=== PATIENT | female | born 1965 | race Caucasian/White ===

== ENCOUNTER → 2016-08-16 | Outpatient (CLI) | payer MEDICARE, MEDICAID ==
[~2016-08-16] MED LIST: ASPI1TAB PO; BUSP30TA PO; CALCTAB68 PO; CIPR500T89 PO; CLOB0.0548 TOP; DOXE50CA PO; DRIS50002 PO; FLAG500T PO; LORA10TA2 PO; NEXI40CA PO; NIFE15CA PO; VITMTA PO; [UNRECOGNIZED DRUG - CODE] TOP; [UNRECOGNIZED DRUG - CODE] TOP
--- NOTE | 2016-08-16 09:58 | REP ---
Clinical: Primary osteoarthritis. Technique: AP view of the pelvis with neutral and frog lateral views of the bilateral hips. Comparison: 03/08/2011. Findings: Moderate symmetric osteoarthritic degenerative changes to the bilateral hips is appreciated including increased sclerosis to the acetabular with marginal spurring and mild joint space narrowing. No periarticular calcifications are identified. No acute fracture or dislocation. Impression: Moderate symmetric osteoarthritic degenerative changes. Signed by Peter Saldivar MD 08/16/2016 09:50 A
== END ==
LOC: M WUC 09:21
PROVIDERS: ATTEND Physician Assistant Medical
DX: M16.0 Bilateral primary osteoarthritis of hip (principal)
CPT/HCPCS: 73521; G0463

== ENCOUNTER → 2016-08-26 | Outpatient (REF) | payer MEDICARE, MEDICAID ==
[2016-08-26 13:01] LABS: BASO % 0.6 % (0.0-1.0); EOS # 0.3 K/mm3 (0.0-0.50); EOS % 4.1 % (0.0-3.0); LARGE UNSTAINED CELL # 0.1 K/mm3 (0.0-0.4); LARGE UNSTAINED CELL % 1.7 % (0.0-4.0); LYMPH % 29.9 % (24.0-44.0); MEAN CORPUSCULAR HEMOGLOBIN 26.6 pg (27.0-33.0); MEAN CORPUSCULAR HGB CONC 32.3 g/dl (32.0-36.5); MEAN CORPUSCULAR VOLUME 82.2 fl (80.0-96.0); MONO # 0.4 K/mm3 (0.0-0.8); MONO % 5.8 % (0.0-5.0); NEUTROPHILS # 3.6 K/mm3 (1.8-7.7); NEUTROPHILS % 57.9 % (36.0-66.0); PLATELET COUNT, AUTOMATED 322 k/mm3 (150-450); RED CELL DISTRIBUTION WIDTH 14.6 % (11.5-14.5); WHITE BLOOD COUNT 6.2 K/mm3 (4.0-10.0)
[2016-08-26 13:24] LABS: ALBUMIN 3.8 GM/DL (3.2-5.2); ALBUMIN/GLOBULIN RATIO 0.97 (1.00-1.93); ALKALINE PHOSPHATASE 142 U/L (45-117); ALT/SGPT 18 U/L (12-78); ANION GAP 8 MEQ/L (8-16); AST/SGOT 20 U/L (15-37); BILIRUBIN,TOTAL 0.2 MG/DL (0.2-1.0); BLOOD UREA NITROGEN 14 MG/DL (7-18); CARBON DIOXIDE LEVEL 27 MEQ/L (21-32); CHLORIDE LEVEL 109 MEQ/L (98-107); CHOLESTEROL LEVEL 162 MG/DL (<200); CREATININE FOR GFR 0.89 MG/DL (0.55-1.02); FERRITIN 19 NG/ML (8-252); FREE T4 1.06 NG/DL (0.76-1.46); GLOMERULAR FILTRATION RATE > 60.0 (>51); GLUCOSE, FASTING 75 MG/DL (70-105); PERCENT SATURATION 7.1 % (13.2-37.4); POTASSIUM SERUM 4.6 MEQ/L (3.5-5.1); SODIUM LEVEL 144 MEQ/L (136-145); TOTAL IRON BINDING CAPACITY 394 UG/DL (250-450); TOTAL PROTEIN 7.7 GM/DL (6.4-8.2); TRIGLYCERIDES LEVEL 171 MG/DL (<150)
[2016-08-26 14:31] LABS: ERYTHROCYTE SEDIMENTATION RATE 23 mm/hr (0-30)
== END ==
LOC: M SFHCPLAZ 10:53
PROVIDERS: ATTEND Family Medicine
DX: D50.9 Iron deficiency anemia, unspecified (principal); E55.9 Vitamin D deficiency, unspecified; M47.816 Spondylosis without myelopathy or radiculopathy, lumbar region; E78.2 Mixed hyperlipidemia
CPT/HCPCS: 36415; 80053; 80061; 82306; 82728; 83550; 83970; 84439; 84443; 85025; 85652; 86140; G0463

== ENCOUNTER → 2016-08-28 | Outpatient (CLI) | payer MEDICARE, MEDICAID ==
--- NOTE | 2016-08-29 07:35 | REP ---
LUMBOSACRAL SPINE: Five views of the lumbosacral spine are performed. There is no compression fracture. There is moderate diffuse spurring. There is mild disc space narrowing at all levels. There is sclerosis at the facets of L4-5 and L5-S1. The posterior elements are intact. IMPRESSION: Degenerative changes without fracture or dislocation. Signed by Presley Pedroza MD 08/29/2016 01:54 P
--- NOTE | 2016-08-29 07:40 | REP ---
THORACIC SPINE: AP and lateral views of the thoracic spine are performed. There is no compression fracture. There is normal thoracic kyphosis. Diffuse spurring is seen of a moderate degree with multiple bridging osteophytes diffusely. There is mild disc space narrowing and subchondral sclerosis at virtually all levels. There is curvature toward the right. Posterior elements appear intact. IMPRESSION: Diffuse degenerative changes. Signed by Presley Pedroza MD 08/29/2016 01:54 P
== END ==
LOC: M WUC 10:01
PROVIDERS: ATTEND Family Medicine
DX: M41.20 Other idiopathic scoliosis, site unspecified (principal)

== ENCOUNTER → 2016-10-26 | Outpatient (CLI) | payer MEDICARE, MEDICAID ==
[2016-10-26 17:57] LABS: BASO % 0.5 % (0.0-1.0); EOS # 0.2 K/mm3 (0.0-0.50); EOS % 2.7 % (0.0-3.0); LARGE UNSTAINED CELL # 0.1 K/mm3 (0.0-0.4); LARGE UNSTAINED CELL % 1.2 % (0.0-4.0); LYMPH % 29.6 % (24.0-44.0); MEAN CORPUSCULAR HEMOGLOBIN 26.2 pg (27.0-33.0); MEAN CORPUSCULAR HGB CONC 30.7 g/dl (32.0-36.5); MEAN CORPUSCULAR VOLUME 85.3 fl (80.0-96.0); MONO # 0.2 K/mm3 (0.0-0.8); MONO % 3.1 % (0.0-5.0); NEUTROPHILS # 4.3 K/mm3 (1.8-7.7); NEUTROPHILS % 62.9 % (36.0-66.0); PLATELET COUNT, AUTOMATED 274 k/mm3 (150-450); RED CELL DISTRIBUTION WIDTH 15.4 % (11.5-14.5); WHITE BLOOD COUNT 6.9 K/mm3 (4.0-10.0)
[2016-10-26 18:06] LABS: PERCENT SATURATION 8.7 % (13.2-37.4)
== END ==
LOC: M WUC 14:21
PROVIDERS: ATTEND Physician Assistant Medical
DX: D50.9 Iron deficiency anemia, unspecified (principal)

== ENCOUNTER → 2016-12-13 | Outpatient (CLI) | payer MEDICARE, MEDICAID ==
--- NOTE | 2016-12-15 09:15 | DEXA ---
AP SPINE L1 - L4 1.312 0.9 1.6 LT FEMUR TOTAL 0.869 -1.1 -0.5 RT FEMUR TOTAL 0.880 -1.0 -0.4 TOTAL BODY TOTAL OTHER DUAL FEMUR FRAX* ASSESSMENT Risk factors: None that we are aware of. 10 year probability of fracture Major osteoporotic fracture 5.4 % Hip fracture 0.4 % COMMENTS: Normal bone densitometry of the spine. There is low bone density of the hips. The increased density of the spine does not represent a significant change. The decreased density of the left hip does represent a significant change. The decreased density of the right hip does represent a significant change. The density of the spine has decreased 16.6% since the initial exam on 2006. The spine density has increased 0.4% since the most recent exam on 01/04/2014. The density of the left hip has decreased 12.2% since the initial exam on 2006. The density of the left hip has decreased 3.1% since the most recent exam on 04/2014. The density of the right hip has decreased 13.8% since the initial exam on 08/24. The density of the right hip has decreased 3.7% since the most recent exam on . FOLLOW-UP: Recommendation for the next bone density exam: 2 years. JOSIE
== END ==
LOC: M WHC 11:30
PROVIDERS: ATTEND Family Medicine
DX: E55.9 Vitamin D deficiency, unspecified (principal); M89.9 Disorder of bone, unspecified

== ENCOUNTER → 2017-04-21 | Outpatient (CLI) | payer MEDICARE, MEDICAID ==
[~2017-04-21] MED LIST changes: +CIPR-249 PO; -CIPR500T89 PO
--- NOTE | 2017-04-21 11:05 | REP ---
BILATERAL SCREENING DIGITAL MAMMOGRAM: There are no palpable abnormalities or other breast complaints. The patient states that she/he has not had a clinical breast exam in over a year. COMPARISON: 12/25/2009. The patient was unable to fully cooperate with the mammogram examination process. Only a portion of the breast parenchyma is projected over the films. The visualized breast parenchyma demonstrates no dominant mass, microcalcific cluster, or architectural distortion that would indicate malignancy. The breast parenchyma is predominantly adipose. There are stable benign calcifications, as previously. IMPRESSION: BIRADS category 0, incomplete. The patient should return for additional views demonstrating more breast parenchyma, as on prior studies. This mammogram was interpreted with the aid of an FDA-approved computer-aided detection system. A. Negative x-ray reports should not delay biopsy if a dominant or clinically suspicious mass is present. B. Not all breast cancers are not identified by x-ray. C. Adenosis and dense breasts may obscure an underlying neoplasm. The patient letter M0.
== END ==
LOC: M WHC 09:26
PROVIDERS: ATTEND Family Medicine
DX: Z12.31 Encounter for screening mammogram for malignant neoplasm of breast (principal)

== ENCOUNTER 2017-05-25 09:00 | Outpatient (RCR) | payer MEDICARE, MEDICAID | END 2017-05-26 | LOC: M PT 09:00 | PROVIDERS: ATTEND Family Medicine | DX: M47.812 Spondylosis without myelopathy or radiculopathy, cervical region (principal) | CPT/HCPCS: 97110; 97161; G8978; G8979 ==

== ENCOUNTER 2017-05-30 08:55 | Outpatient (RCR) | payer MEDICARE, MEDICAID | END 2017-06-26 | LOC: M PT 08:55 | DX: Z51.89 Encounter for other specified aftercare (principal); M47.812 Spondylosis without myelopathy or radiculopathy, cervical region | CPT/HCPCS: 97110 ==

== ENCOUNTER 2017-07-07 13:05 | Inpatient (IN) | payer MEDICARE, MEDICAID ==
[2017-07-07] MEDS: OYSTER SHELL CALCIUM 500 MG TAB PO ×2 (09:00→22:48)
[2017-07-07 13:52] LABS: BASO % 0.2 % (0.0-1.0); EOS # 0.2 10^3/uL (0.0-0.50); EOS % 2.1 % (0.0-3.0); HEMOGLOBIN 13.8 g/dl (12.0-16.0); IMMATURE GRANULOCYTE % 0.2 % (0-0); LYMPH # 0.8 10^3/uL (1.5-4.5); LYMPH % 8.4 % (24.0-44.0); MEAN CORPUSCULAR HEMOGLOBIN 26.8 pg (27.0-33.0); MEAN CORPUSCULAR HGB CONC 32.1 g/dl (32.0-36.5); MEAN CORPUSCULAR VOLUME 83.7 fl (80.0-96.0); MONO # 0.4 10^3/uL (0.0-0.8); MONO % 3.9 % (0.0-5.0); NEUTROPHILS # 7.8 10^3/uL (1.8-7.7); NEUTROPHILS % 85.2 % (36.0-66.0); PLATELET COUNT, AUTOMATED 258 10^3/uL (150-450); RED BLOOD COUNT 5.14 10^6/uL (4.00-5.40); RED CELL DISTRIBUTION WIDTH 14.6 % (11.5-14.5); WHITE BLOOD COUNT 9.1 10^3/uL (4.0-10.0)
[2017-07-07] MEDS: ASPIRIN 81 MG CHEW TABLET PO (13:52)
[2017-07-07] MEDS: NORCO, ANEXSIA 5/325MG TABLET (HYDROcodone/ACETAMINOPHEN) PO (13:53)
[2017-07-07 14:05] LABS: INR 1.07
[2017-07-07 14:27] LABS: ALBUMIN 3.8 GM/DL (3.2-5.2); ALBUMIN/GLOBULIN RATIO 0.97 (1.00-1.93); ALKALINE PHOSPHATASE 125 U/L (45-117); ALT/SGPT 20 U/L (12-78); ANION GAP 9 MEQ/L (8-16); AST/SGOT 19 U/L (7-37); BILIRUBIN,DIRECT 0.1 MG/DL (0.0-0.2); BILIRUBIN,TOTAL 0.6 MG/DL (0.2-1.0); BLOOD UREA NITROGEN 23 MG/DL (7-18); C REACTIVE PROTEIN QUANTITATIV 1.08 MG/DL (0.00-0.30); CALCIUM LEVEL 8.3 MG/DL (8.5-10.1); CARBON DIOXIDE LEVEL 25 MEQ/L (21-32); CHLORIDE LEVEL 106 MEQ/L (98-107); CPK CREATINE PHOSPHOKINASE 73 U/L (26-192); CREATININE FOR GFR 0.85 MG/DL (0.55-1.02); GLOMERULAR FILTRATION RATE > 60.0 (>51); GLUCOSE, FASTING 102 MG/DL (70-105); POTASSIUM SERUM 4.3 MEQ/L (3.5-5.1); SODIUM LEVEL 140 MEQ/L (136-145); TOTAL PROTEIN 7.7 GM/DL (6.4-8.2); TROPONIN I < 0.02 NG/ML (< 0.10)
[2017-07-07 14:28] LABS: ERYTHROCYTE SEDIMENTATION RATE 7 mm/hr (0-30)
[2017-07-07 14:33] LABS: MB/CK RELATIVE INDEX 1.36 (< OR =4)
[2017-07-07] MEDS: ONDANSETRON 4MG/2ML VIAL (J2405) IV ×2 (16:15→23:13)
[2017-07-07] MEDS: ACETAMINOPHEN TAB 650MG DOSE (2X325MG) PO ×2 (16:45→21:29)
[2017-07-07] MEDS: NS 1,000 ML IV ×2 (16:45→18:30)
[2017-07-07 18:49] LABS: CPK CREATINE PHOSPHOKINASE 58 U/L (26-192); TROPONIN I < 0.02 NG/ML (< 0.10)
[2017-07-07 18:50] LABS: MB/CK RELATIVE INDEX 1.72 (< OR =4)
[2017-07-07] MEDS ORDERED: CLOBETASOL PROPIONATE EMOLLIENT 0.05% CR 60 GM TOP (22:00)
[2017-07-07] MEDS: busPIRone 5 MG TAB PO (22:48)
[2017-07-07] MEDS: DOXEPIN 25 MG CAP PO (22:48)
[2017-07-07] MEDS: HEPARIN SOD (PORCINE) 5000 UNITS/ML VIAL SC (22:48)
[2017-07-08] MEDS: NS 1,000 ML IV ×2 (04:30→14:30)
[2017-07-08] MEDS: ACETAMINOPHEN TAB 650MG DOSE (2X325MG) PO ×2 (05:03→10:13)
[2017-07-08] MEDS: HEPARIN SOD (PORCINE) 5000 UNITS/ML VIAL SC ×2 (08:13→21:00)
[2017-07-08] MEDS: ASPIRIN 81 MG ENTERIC TAB PO (08:14)
[2017-07-08] MEDS: IRON POLYSAC (NIFEREX) 150 MG CAP PO (08:14)
[2017-07-08] MEDS: MULTIVITAMINS/MINERALS THERAP 1 TAB PO (08:14)
[2017-07-08] MEDS: NEBIVOLOL 5 MG TAB (BYSTOLIC) PO (08:14)
[2017-07-08] MEDS: PANTOPRAZOLE 40MG TAB (PROTONIX) PO (08:15)
[2017-07-08] MEDS: BABY POWDER 120GM TOP (08:15)
[2017-07-08] MEDS: OYSTER SHELL CALCIUM 500 MG TAB PO ×2 (08:15→21:01)
[2017-07-08] MEDS: SARNA LOTION 225 ML BTL TOP ×2 (08:16→21:02)
[2017-07-08 08:58] LABS: BASO % 0.1 % (0.0-1.0); HEMATOCRIT 38.5 % (36.0-47.0); HEMOGLOBIN 12.5 g/dl (12.0-16.0); IMMATURE GRANULOCYTE % 0.3 % (0-0); LYMPH # 0.8 10^3/uL (1.5-4.5); LYMPH % 11.1 % (24.0-44.0); MEAN CORPUSCULAR HEMOGLOBIN 27.3 pg (27.0-33.0); MEAN CORPUSCULAR HGB CONC 32.5 g/dl (32.0-36.5); MEAN CORPUSCULAR VOLUME 84.1 fl (80.0-96.0); MONO # 0.2 10^3/uL (0.0-0.8); NEUTROPHILS # 6.1 10^3/uL (1.8-7.7); NEUTROPHILS % 85.5 % (36.0-66.0); PLATELET COUNT, AUTOMATED 210 10^3/uL (150-450); RED BLOOD COUNT 4.58 10^6/uL (4.00-5.40); WHITE BLOOD COUNT 7.1 10^3/uL (4.0-10.0)
[2017-07-08 09:17] LABS: ANION GAP 7 MEQ/L (8-16); BLOOD UREA NITROGEN 16 MG/DL (7-18); CALCIUM LEVEL 7.3 MG/DL (8.5-10.1); CARBON DIOXIDE LEVEL 24 MEQ/L (21-32); CHLORIDE LEVEL 111 MEQ/L (98-107); CREATININE FOR GFR 0.79 MG/DL (0.55-1.02); GLOMERULAR FILTRATION RATE > 60.0 (>51); GLUCOSE, FASTING 125 MG/DL (70-105); POTASSIUM SERUM 3.2 MEQ/L (3.5-5.1); SODIUM LEVEL 142 MEQ/L (136-145)
[2017-07-08] MEDS: busPIRone 5 MG TAB PO ×2 (10:13→21:01)
[2017-07-08 18:54] LABS: SALICYLATE LEVEL < 1.7 MG/DL (5.0-30.0)
[2017-07-08] MEDS: POTASSIUM CHLORIDE 10 MEQ SR TABLET PO (21:01)
[2017-07-08] MEDS: DOXEPIN 25 MG CAP PO (21:01)
[2017-07-09] MEDS: NS 1,000 ML IV ×2 (00:30→08:35)
[2017-07-09] MEDS: VANCOMYCIN ORAL SOL 250MG/5ML ORAL SYRINGE PO ×4 (02:05→18:30)
[2017-07-09 06:27] LABS: HEMATOCRIT 36.7 % (36.0-47.0); HEMOGLOBIN 11.6 g/dl (12.0-16.0); MEAN CORPUSCULAR HEMOGLOBIN 26.4 pg (27.0-33.0); MEAN CORPUSCULAR HGB CONC 31.6 g/dl (32.0-36.5); MEAN CORPUSCULAR VOLUME 83.6 fl (80.0-96.0); PLATELET COUNT, AUTOMATED 203 10^3/uL (150-450); RED BLOOD COUNT 4.39 10^6/uL (4.00-5.40); RED CELL DISTRIBUTION WIDTH 14.8 % (11.5-14.5); WHITE BLOOD COUNT 6.4 10^3/uL (4.0-10.0)
[2017-07-09 06:54] LABS: ANION GAP 7 MEQ/L (8-16); BLOOD UREA NITROGEN 12 MG/DL (7-18); CALCIUM LEVEL 7.4 MG/DL (8.5-10.1); CARBON DIOXIDE LEVEL 20 MEQ/L (21-32); CHLORIDE LEVEL 116 MEQ/L (98-107); CREATININE FOR GFR 0.65 MG/DL (0.55-1.02); GLOMERULAR FILTRATION RATE > 60.0 (>51); GLUCOSE, FASTING 80 MG/DL (70-105); POTASSIUM SERUM 3.6 MEQ/L (3.5-5.1); SODIUM LEVEL 143 MEQ/L (136-145)
[2017-07-09] MEDS: IRON POLYSAC (NIFEREX) 150 MG CAP PO (08:35)
[2017-07-09] MEDS: POTASSIUM CHLORIDE 10 MEQ SR TABLET PO ×2 (08:36→21:06)
[2017-07-09] MEDS: busPIRone 5 MG TAB PO ×2 (08:37→21:06)
[2017-07-09] MEDS: ACETAMINOPHEN TAB 650MG DOSE (2X325MG) PO (08:37)
[2017-07-09] MEDS: NEBIVOLOL 5 MG TAB (BYSTOLIC) PO (08:38)
[2017-07-09] MEDS: HEPARIN SOD (PORCINE) 5000 UNITS/ML VIAL SC ×2 (08:38→21:07)
[2017-07-09] MEDS: PANTOPRAZOLE 40MG TAB (PROTONIX) PO (08:38)
[2017-07-09] MEDS: ASPIRIN 81 MG ENTERIC TAB PO (08:39)
[2017-07-09] MEDS: SARNA LOTION 225 ML BTL TOP ×2 (08:39→21:08)
[2017-07-09] MEDS: BABY POWDER 120GM TOP (08:39)
[2017-07-09] MEDS: MULTIVITAMINS/MINERALS THERAP 1 TAB PO (08:39)
[2017-07-09] MEDS: OYSTER SHELL CALCIUM 500 MG TAB PO ×2 (08:39→21:05)
[2017-07-09] MEDS: KCL 20MEQ IN 0.45NS 1000ML 1,000 ML IV (14:30)
[2017-07-09] MEDS: DOXEPIN 25 MG CAP PO (21:05)
[2017-07-10] MEDS: VANCOMYCIN ORAL SOL 250MG/5ML ORAL SYRINGE PO ×4 (00:08→17:58)
[2017-07-10] MEDS: KCL 20MEQ IN 0.45NS 1000ML 1,000 ML IV ×2 (03:54→14:09)
[2017-07-10 07:40] LABS: HEMATOCRIT 37.8 % (36.0-47.0); MEAN CORPUSCULAR HEMOGLOBIN 26.4 pg (27.0-33.0); MEAN CORPUSCULAR HGB CONC 31.7 g/dl (32.0-36.5); MEAN CORPUSCULAR VOLUME 83.3 fl (80.0-96.0); PLATELET COUNT, AUTOMATED 241 10^3/uL (150-450); RED BLOOD COUNT 4.54 10^6/uL (4.00-5.40); WHITE BLOOD COUNT 5.4 10^3/uL (4.0-10.0)
[2017-07-10 08:02] LABS: ANION GAP 8 MEQ/L (8-16); BLOOD UREA NITROGEN 7 MG/DL (7-18); CALCIUM LEVEL 7.9 MG/DL (8.5-10.1); CARBON DIOXIDE LEVEL 23 MEQ/L (21-32); CHLORIDE LEVEL 115 MEQ/L (98-107); CREATININE FOR GFR 0.69 MG/DL (0.55-1.02); GLOMERULAR FILTRATION RATE > 60.0 (>51); GLUCOSE, FASTING 76 MG/DL (70-105); POTASSIUM SERUM 3.8 MEQ/L (3.5-5.1); SODIUM LEVEL 146 MEQ/L (136-145)
[2017-07-10] MEDS: SARNA LOTION 225 ML BTL TOP ×2 (09:00→20:37)
[2017-07-10] MEDS: MULTIVITAMINS/MINERALS THERAP 1 TAB PO (09:39)
[2017-07-10] MEDS: HEPARIN SOD (PORCINE) 5000 UNITS/ML VIAL SC ×2 (09:40→20:34)
[2017-07-10] MEDS: IRON POLYSAC (NIFEREX) 150 MG CAP PO (09:40)
[2017-07-10] MEDS: POTASSIUM CHLORIDE 10 MEQ SR TABLET PO ×2 (09:40→20:34)
[2017-07-10] MEDS: busPIRone 5 MG TAB PO ×2 (09:40→20:36)
[2017-07-10] MEDS: OYSTER SHELL CALCIUM 500 MG TAB PO ×2 (09:41→20:35)
[2017-07-10] MEDS: NEBIVOLOL 5 MG TAB (BYSTOLIC) PO (09:41)
[2017-07-10] MEDS: ASPIRIN 81 MG ENTERIC TAB PO (09:41)
[2017-07-10] MEDS: BABY POWDER 120GM TOP (09:41)
[2017-07-10] MEDS: DOXEPIN 25 MG CAP PO (20:35)
[2017-07-11] MEDS: VANCOMYCIN ORAL SOL 250MG/5ML ORAL SYRINGE PO ×2 (00:53→05:59)
[2017-07-11 07:08] LABS: HEMOGLOBIN 12.6 g/dl (12.0-16.0); MEAN CORPUSCULAR HEMOGLOBIN 26.6 pg (27.0-33.0); MEAN CORPUSCULAR HGB CONC 32.3 g/dl (32.0-36.5); MEAN CORPUSCULAR VOLUME 82.5 fl (80.0-96.0); PLATELET COUNT, AUTOMATED 275 10^3/uL (150-450); RED BLOOD COUNT 4.73 10^6/uL (4.00-5.40); RED CELL DISTRIBUTION WIDTH 14.8 % (11.5-14.5); WHITE BLOOD COUNT 5.8 10^3/uL (4.0-10.0)
[2017-07-11 07:24] LABS: ANION GAP 5 MEQ/L (8-16); BLOOD UREA NITROGEN 14 MG/DL (7-18); CALCIUM LEVEL 8.4 MG/DL (8.5-10.1); CARBON DIOXIDE LEVEL 27 MEQ/L (21-32); CHLORIDE LEVEL 111 MEQ/L (98-107); CREATININE FOR GFR 0.74 MG/DL (0.55-1.02); GLOMERULAR FILTRATION RATE > 60.0 (>51); GLUCOSE, FASTING 91 MG/DL (70-105); SODIUM LEVEL 143 MEQ/L (136-145)
[2017-07-11] MEDS: IRON POLYSAC (NIFEREX) 150 MG CAP PO (09:54)
[2017-07-11] MEDS: POTASSIUM CHLORIDE 10 MEQ SR TABLET PO (09:54)
[2017-07-11] MEDS: busPIRone 5 MG TAB PO (09:54)
[2017-07-11] MEDS: NEBIVOLOL 5 MG TAB (BYSTOLIC) PO (09:55)
[2017-07-11] MEDS: HEPARIN SOD (PORCINE) 5000 UNITS/ML VIAL SC (09:55)
[2017-07-11] MEDS: OYSTER SHELL CALCIUM 500 MG TAB PO (09:55)
[2017-07-11] MEDS: MULTIVITAMINS/MINERALS THERAP 1 TAB PO (09:55)
[2017-07-11] MEDS: ASPIRIN 81 MG ENTERIC TAB PO (09:55)
[2017-07-11] MEDS: SARNA LOTION 225 ML BTL TOP (09:56)
[2017-07-11] MEDS: BABY POWDER 120GM TOP (09:56)
== END 2017-07-11 10:55 | disposition home or self-care (01) | DRG 372 ==
LOC: M MS4PR 07-08 11:50 → M MS5PR 07-08 16:59 → M ED 13:05 → M ED INP 22:01
DX: A04.72 Enterocolitis due to Clostridium difficile, not specified as recurrent (principal); E87.0 Hyperosmolality and hypernatremia; B97.29 Other coronavirus as the cause of diseases classified elsewhere; K21.9 Gastro-esophageal reflux disease without esophagitis; F41.9 Anxiety disorder, unspecified; E78.5 Hyperlipidemia, unspecified; M19.90 Unspecified osteoarthritis, unspecified site; L28.0 Lichen simplex chronicus; E55.9 Vitamin D deficiency, unspecified; F81.9 Developmental disorder of scholastic skills, unspecified; L85.8 Other specified epidermal thickening; Z79.82 Long term (current) use of aspirin; Z79.899 Other long term (current) drug therapy

== ENCOUNTER → 2017-09-29 | Outpatient (REF) | payer MEDICARE, MEDICAID ==
[2017-09-29 19:19] LABS: INFLUENZA A AMPLIFICATION POSITIVE (NEGATIVE); INFLUENZA B AMPLIFICATION NEGATIVE (NEGATIVE)
== END ==
LOC: M LAB REF 18:37
DX: J11.1 Influenza due to unidentified influenza virus with other respiratory manifestations (principal)
CPT/HCPCS: 87502

== ENCOUNTER → 2017-12-06 | Outpatient (REF) | payer MEDICARE, MEDICAID ==
[2017-12-06 17:33] LABS: BASO # 0.1 10^3/uL (0.0-0.2); EOS # 0.3 10^3/uL (0.0-0.50); EOS % 4.5 % (0.0-3.0); HEMATOCRIT 42.3 % (36.0-47.0); HEMOGLOBIN 13.5 g/dl (12.0-15.5); IMMATURE GRANULOCYTE % 0.3 % (0-3.0); LYMPH # 2.2 10^3/uL (1.5-4.5); LYMPH % 36.5 % (24.0-44.0); MEAN CORPUSCULAR HEMOGLOBIN 27.3 pg (27.0-33.0); MEAN CORPUSCULAR HGB CONC 31.9 g/dl (32.0-36.5); MEAN CORPUSCULAR VOLUME 85.5 fl (80.0-96.0); MONO # 0.5 10^3/uL (0.0-0.8); MONO % 8.3 % (0.0-5.0); NEUTROPHILS % 49.4 % (36.0-66.0); PLATELET COUNT, AUTOMATED 300 10^3/uL (150-450); RED BLOOD COUNT 4.95 10^6/uL (4.00-5.40); RED CELL DISTRIBUTION WIDTH 15.3 % (11.5-14.5); RETICULOCYTE # 49.5 10^9/L (17-77)
[2017-12-06 18:05] LABS: HEMATOCRIT 42.3 % (36.0-47.0)
[2017-12-06 18:19] LABS: ALBUMIN 3.7 GM/DL (3.2-5.2); ALKALINE PHOSPHATASE 131 U/L (45-117); ALT/SGPT 21 U/L (12-78); ANION GAP 5 MEQ/L (8-16); AST/SGOT 17 U/L (7-37); BILIRUBIN,TOTAL 0.3 MG/DL (0.2-1.0); BLOOD UREA NITROGEN 17 MG/DL (7-18); CALCIUM LEVEL 8.6 MG/DL (8.5-10.1); CARBON DIOXIDE LEVEL 29 MEQ/L (21-32); CHLORIDE LEVEL 108 MEQ/L (98-107); FERRITIN 39 NG/ML (8-252); GLOMERULAR FILTRATION RATE > 60.0 (>51); GLUCOSE, FASTING 99 MG/DL (70-100); SODIUM LEVEL 142 MEQ/L (136-145); TOTAL PROTEIN 7.8 GM/DL (6.4-8.2)
[2017-12-06 18:24] LABS: VITAMIN B12 LEVEL 486 PG/ML (247-911)
[2017-12-08 10:55] LABS: ALBUMIN % 56.8 % (55.8-66.1); ALPHA-1-GLOBULIN % 3.9 % (2.9-4.9); ALPHA-2-GLOBULINS % 10.8 % (7.1-11.8)
[2017-12-08 10:56] LABS: ALBUMIN 4.43 GM/DL (3.29-5.55); ALPHA-2-GLOBULINS 0.84 GM/DL (0.42-0.99); BETA-1-GLOBULINS 0.48 GM/DL (0.28-0.60); BETA-1-GLOBULINS % 6.2 % (4.7-7.2); BETA-2-GLOBULINS 0.41 GM/DL (0.19-0.55); BETA-2-GLOBULINS % 5.3 % (3.2-6.5); GAMMA GLOBULINS 1.33 GM/DL (0.65-1.58)
[2017-12-09 12:47] LABS: PRETREATED FOLATE FOR RBCFOL 15.4 NG/ML; RBC FOLATE 764.5 NG/ML (280-791)
== END ==
LOC: M SFHCPLAZ 16:16
DX: D50.9 Iron deficiency anemia, unspecified (principal); I10 Essential (primary) hypertension
CPT/HCPCS: 84165

== ENCOUNTER → 2018-04-28 | Outpatient (REF) | payer MEDICARE, MEDICAID ==
[2018-04-28 14:21] LABS: C REACTIVE PROTEIN QUANTITATIV 0.58 MG/DL (0.00-0.30); CHOLESTEROL LEVEL 162 MG/DL (<200); CHOLESTEROL RISK RATIO 4.909 (<5); CPK CREATINE PHOSPHOKINASE 94 U/L (26-192); FREE T4 0.93 NG/DL (0.76-1.46); HDL CHOLESTEROL 33 MG/DL (>40); LDL CHOLESTEROL 92 MG/DL (<100); NON-HDL-C 129 MG/DL; PTH INTACT 43.1 PG/ML (18.5-88.0); TOTAL 25(OH) VITAMIN D 32.7 NG/ML (30.0-100.0); TRIGLYCERIDES LEVEL 183 MG/DL (<150)
== END ==
LOC: M SFHCPLAZ 10:51
DX: E78.2 Mixed hyperlipidemia (principal); E55.9 Vitamin D deficiency, unspecified; Z68.30 Body mass index [BMI] 30.0-30.9, adult
CPT/HCPCS: 82550

== ENCOUNTER → 2018-05-02 | Outpatient (CLI) | payer MEDICARE, MEDICAID | LOC: M WHC 10:40 | DX: Z12.31 Encounter for screening mammogram for malignant neoplasm of breast (principal) | CPT/HCPCS: 77067 ==

== ENCOUNTER 2018-08-22 10:45 | Day surgery (SDC) | payer MEDICAID, MEDICARE ==
[~2018-08-22] VITALS: Ht 154.9 cm; Wt 74.4 kg
[~2018-08-22 10:45] MED LIST changes: +BUSP15TA47 PO; +BYST2.5T2 PO; -DRIS50002 PO; +DRIS50003 PO; +FERR150C PO; +FIRS50SO PO; +LIDOCAINE 2% INJ 100 MG/5 ML SDV (FOR ANES.) As Ordered ONE; +LORA-243 PO; -LORA10TA2 PO; +PARO10TA3 PO; +PAXIL PO; +PROPOFOL 200 MG/20 ML VIAL As Ordered ONE; +SARN1LOT3 TOP; +TRAZ-160 PO
[2018-08-22] MEDS ORDERED: NS 1,000 ML IV ONE (11:00)
--- NOTE | 2018-08-22 11:41 | ROOR ---
Patient Name: Lindsey Velasquez Procedure Date: 08/22/2018 11:27 AM Date of : 1965 Age: 53 Room: [facility] Gender: Female Note Status: Finalized Procedure: Colonoscopy Indications: High risk colon cancer surveillance: Personal history of colonic polyps, Last colonoscopy: May 2015 Providers: Manish RENNER MD Referring MD: Francisco Bryant MD Requesting Provider: Medicines: Monitored Anesthesia Care Complications: No immediate complications. Procedure: Pre-Anesthesia Assessment: - The heart rate, respiratory rate, oxygen saturations, blood pressure, adequacy of pulmonary ventilation, and response to care were monitored throughout the procedure. The Colonoscope was introduced through the anus and advanced to the terminal ileum, with identification of the appendiceal orifice and IC valve. The colonoscopy was performed without difficulty. The patient tolerated the procedure well. The quality of the bowel preparation was excellent. Findings: The perianal and digital rectal examinations were normal. The entire colon appeared normal on direct and retroflexion views. Impression: - The entire colon is normal on direct and retroflexion views. - No specimens collected. Recommendation: - Repeat colonoscopy in 5 years for adenoma surveillance. Manish Renner MD Manish RENNER MD 08/22/2018 11:40:47 AM This report has been signed electronically. Number of Addenda: 0 Note Initiated On: 08/22/2018 11:27 AM Estimated Blood Loss: Estimated blood loss: none.
[2018-08-22 11:45] VITALS: BP 196/97
== END 2018-08-22 12:15 | disposition home or self-care (01) ==
LOC: M OPP 10:45
PROVIDERS: ATTEND Internal Medicine Gastroenterology
DX: Z12.11 Encounter for screening for malignant neoplasm of colon (principal); Z86.010 Personal history of colon polyps; K21.9 Gastro-esophageal reflux disease without esophagitis; G80.9 Cerebral palsy, unspecified; Z79.899 Other long term (current) drug therapy; J30.2 Other seasonal allergic rhinitis; Z88.2 Allergy status to sulfonamides

== ENCOUNTER → 2018-09-27 | Outpatient (REF) | payer MEDICARE, MEDICAID ==
[~2018-09-27] MED LIST changes: -ASPI1TAB PO; +ASPI81TA26 PO; -LIDOCAINE 2% INJ 100 MG/5 ML SDV (FOR ANES.) As Ordered ONE; -PROPOFOL 200 MG/20 ML VIAL As Ordered ONE
[2018-09-27 13:51] LABS: ALT/SGPT 21 U/L (12-78); BILIRUBIN,TOTAL 0.5 MG/DL (0.2-1.0); BLOOD UREA NITROGEN 15 MG/DL (7-18); CARBON DIOXIDE LEVEL 28 MEQ/L (21-32); CHLORIDE LEVEL 107 MEQ/L (98-107); CHOLESTEROL LEVEL 188 MG/DL (<200); CHOLESTEROL RISK RATIO 4.585 (<5); CREATININE FOR GFR 0.88 MG/DL (0.55-1.30); FREE T4 1.02 NG/DL (0.76-1.46); GLOMERULAR FILTRATION RATE > 60.0 (>51); GLUCOSE, FASTING 78 MG/DL (70-100); HDL CHOLESTEROL 41 MG/DL (>40); LDL CHOLESTEROL 129 MG/DL (<100); MAGNESIUM LEVEL 2.4 MG/DL (1.8-2.4); NON-HDL-C 147 MG/DL; POTASSIUM SERUM 4.4 MEQ/L (3.5-5.1); PTH INTACT 39.6 PG/ML (18.5-88.0); SODIUM LEVEL 140 MEQ/L (136-145); TOTAL 25(OH) VITAMIN D 49.1 NG/ML (30.0-100.0); TOTAL PROTEIN 7.4 GM/DL (6.4-8.2); TRIGLYCERIDES LEVEL 88 MG/DL (<150)
[2018-09-27 14:18] LABS: HEMOGLOBIN A1c 5.4 %
[2018-09-27 15:20] LABS: BASO % 0.6 % (0.0-1.0); EOS # 0.2 10^3/uL (0.0-0.50); EOS % 3.8 % (0.0-3.0); HEMATOCRIT 43.5 % (36.0-47.0); HEMOGLOBIN 13.5 g/dl (12.0-15.5); LYMPH # 2.1 10^3/uL (1.5-4.5); LYMPH % 33.1 % (24.0-44.0); MEAN CORPUSCULAR HEMOGLOBIN 26.8 pg (27.0-33.0); MEAN CORPUSCULAR VOLUME 86.3 fl (80.0-96.0); MONO # 0.4 10^3/uL (0.0-0.8); MONO % 6.1 % (0.0-5.0); NEUTROPHILS # 3.5 10^3/uL (1.8-7.7); NEUTROPHILS % 56.2 % (36.0-66.0); PLATELET COUNT, AUTOMATED 290 10^3/uL (150-450); RED BLOOD COUNT 5.04 10^6/uL (4.00-5.40); WHITE BLOOD COUNT 6.3 10^3/uL (4.0-10.0)
== END ==
LOC: M SFHCPLAZ 11:48
PROVIDERS: ATTEND Nurse Practitioner Family
DX: I10 Essential (primary) hypertension (principal); E78.2 Mixed hyperlipidemia; E55.9 Vitamin D deficiency, unspecified

== ENCOUNTER → 2018-12-12 | Outpatient (CLI) | payer MEDICARE, MEDICAID ==
[~2018-12-12] MED LIST changes: -TRAZ-160 PO; +TRAZ-252 PO
--- NOTE | 2018-12-14 13:14 | DEXA ---
AP SPINE L1 - L4 1.327 1.1 1.9 LT FEMUR TOTAL 0.859 -1.2 -0.5 LT NECK 0.823 -1.5 -0.5 RT FEMUR TOTAL 0.874 -1.1 -0.4 RT NECK 0.898 -1.0 0.0 TOTAL BODY TOTAL OTHER COMMENTS: Normal bone densitometry of the spine. There is low bone density of the hips. The density of the spine has decreased 15.7% since the initial exam on 08/24/2006. The spine density has increased 1.1% since the most recent exam on 12/13/2016. The density of the left hip has decreased 13.2% since the initial exam on 08/24/2006. The density of the left hip has decreased 1.2% since the most recent exam on 12/13/2016. The density of the right hip has decreased 14.4% since the initial exam on 08/24/2006. The density of the right hip has decreased 0.7% since the most recent exam on 12/13/2016. FOLLOW-UP: Recommendation for the next bone density exam: 2 years. JOSIE
== END ==
LOC: M WHC 11:03
PROVIDERS: ATTEND Nurse Practitioner Family
DX: M85.89 Other specified disorders of bone density and structure, multiple sites (principal)

== ENCOUNTER → 2019-05-05 | Outpatient (REF) | payer MEDICARE, MEDICAID | LOC: M SFHCADAM 08:26 | PROVIDERS: ATTEND Family Medicine | DX: D50.9 Iron deficiency anemia, unspecified (principal); I10 Essential (primary) hypertension ==

== ENCOUNTER → 2019-05-06 | Outpatient (CLI) | payer MEDICARE, MEDICAID ==
[2019-05-06 13:17] LABS: BASO % 0.6 % (0.0-1.0); EOS # 0.3 10^3/uL (0.0-0.5); EOS % 4.6 % (0.0-3.0); HEMOGLOBIN 13.3 g/dl (12.0-15.5); LYMPH # 1.9 10^3/uL (1.5-5.0); LYMPH % 26.6 % (24.0-44.0); MEAN CORPUSCULAR HEMOGLOBIN 26.6 pg (27.0-33.0); MEAN CORPUSCULAR HGB CONC 30.9 g/dl (32.0-36.5); MONO # 0.5 10^3/uL (0.0-0.8); MONO % 6.3 % (0.0-5.0); NEUTROPHILS # 4.4 10^3/uL (1.5-8.5); NEUTROPHILS % 61.5 % (36.0-66.0); PLATELET COUNT, AUTOMATED 301 10^3/uL (150-450); WHITE BLOOD COUNT 7.2 10^3/uL (4.0-10.0)
[2019-05-06 13:25] LABS: ALBUMIN 3.5 GM/DL (3.2-5.2); ALT/SGPT 20 U/L (12-78); BILIRUBIN,TOTAL 0.5 MG/DL (0.2-1.0); BLOOD UREA NITROGEN 18 MG/DL (7-18); CALCIUM LEVEL 8.6 MG/DL (8.5-10.1); CARBON DIOXIDE LEVEL 27 MEQ/L (21-32); CHLORIDE LEVEL 111 MEQ/L (98-107); CREATININE FOR GFR 0.97 MG/DL (0.55-1.30); GLOMERULAR FILTRATION RATE > 60.0 (>51); GLUCOSE, FASTING 84 MG/DL (70-100); POTASSIUM SERUM 4.2 MEQ/L (3.5-5.1); SODIUM LEVEL 144 MEQ/L (136-145); TOTAL PROTEIN 7.5 GM/DL (6.4-8.2)
[2019-05-06 13:40] LABS: HEMOGLOBIN A1c 5.3 %
== END ==
LOC: M WUC 08:38
PROVIDERS: ATTEND Family Medicine
DX: D50.9 Iron deficiency anemia, unspecified (principal); I10 Essential (primary) hypertension

== ENCOUNTER → 2019-06-05 | Outpatient (CLI) | payer MEDICARE, MEDICAID ==
--- NOTE | 2019-06-05 10:15 | REPMRS ---
Patient History The patient states she has not had a clinical breast exam in over a year. No known family history of cancer. No Hormone Replacement [facility] lifetime risk for breast cancer is 8.9%. Digital Woman Screen Mammo: June 05, 2019 - Exam #: [id number] Bilateral CC and MLO view(s) were taken. Technologist: Natty Ervin, Technologist Prior study comparison: May 02, 2018, bilateral digital woman screen mammo performed at [facility]. April 21, 2017, digital woman screen mammo performed at [facility]. FINDINGS: There are scattered fibroglandular densities. There has been no change in the appearance of the mammogram from the prior studies. There is a mild amount of residual fibroglandular tissue which is fairly symmetric. There is no interval development of dominant mass, architectural distortion, or clustered microcalcification suggestive of malignancy. Assessment: BI-RADS/ACR category 1 mammogram. Negative Mammogram. Recommendation Routine screening mammogram in 1 year (for women over age 40). This mammogram was interpreted with the aid of an FDA-approved computer-aided dectection system. Electronically Signed By: Presley Pedroza MD 06/05/19 1156
== END ==
LOC: M WHC 09:12
PROVIDERS: ATTEND Family Medicine
DX: Z12.31 Encounter for screening mammogram for malignant neoplasm of breast (principal)

== ENCOUNTER → 2019-06-12 | Outpatient (REF) | payer MEDICARE, MEDICAID | LOC: M SFHCPLAZ 15:31 | PROVIDERS: ATTEND Physician Assistant Medical | DX: J02.9 Acute pharyngitis, unspecified (principal) ==

== ENCOUNTER → 2019-06-12 | Outpatient (REF) | payer MEDICARE, MEDICAID ==
[2019-06-12 15:54] LABS: BASO # 0.1 10^3/uL (0.0-0.2); BASO % 0.6 % (0.0-1.0); EOS # 0.2 10^3/uL (0.0-0.5); EOS % 1.6 % (0.0-3.0); HEMATOCRIT 44.4 % (36.0-47.0); HEMOGLOBIN 13.9 g/dl (12.0-15.5); LYMPH # 2.3 10^3/uL (1.5-5.0); LYMPH % 18.2 % (24.0-44.0); MEAN CORPUSCULAR HEMOGLOBIN 26.1 pg (27.0-33.0); MEAN CORPUSCULAR HGB CONC 31.3 g/dl (32.0-36.5); MEAN CORPUSCULAR VOLUME 83.3 fl (80.0-96.0); MONO # 0.9 10^3/uL (0.0-0.8); NEUTROPHILS # 9.1 10^3/uL (1.5-8.5); NEUTROPHILS % 72.3 % (36.0-66.0); PLATELET COUNT, AUTOMATED 283 10^3/uL (150-450); RED BLOOD COUNT 5.33 10^6/uL (4.00-5.40); WHITE BLOOD COUNT 12.6 10^3/uL (4.0-10.0)
[2019-06-12 16:19] LABS: ALBUMIN 3.7 GM/DL (3.2-5.2); ALT/SGPT 22 U/L (12-78); BILIRUBIN,TOTAL 0.6 MG/DL (0.2-1.0); BLOOD UREA NITROGEN 15 MG/DL (7-18); CALCIUM LEVEL 8.7 MG/DL (8.5-10.1); CARBON DIOXIDE LEVEL 24 MEQ/L (21-32); CHLORIDE LEVEL 107 MEQ/L (98-107); CREATININE FOR GFR 0.97 MG/DL (0.55-1.30); GLOMERULAR FILTRATION RATE > 60.0 (>51); GLUCOSE, FASTING 79 MG/DL (70-100); POTASSIUM SERUM 4.6 MEQ/L (3.5-5.1); SODIUM LEVEL 139 MEQ/L (136-145); TOTAL PROTEIN 7.4 GM/DL (6.4-8.2)
== END ==
LOC: M SFHCPLAZ 14:46
PROVIDERS: ATTEND Physician Assistant Medical
DX: J02.9 Acute pharyngitis, unspecified (principal)
CPT/HCPCS: 36415; 80053; 85025; 87880; G0463

== ENCOUNTER → 2019-09-27 | Outpatient (REF) | payer MEDICARE, MEDICAID ==
[2019-09-27 14:57] LABS: ALBUMIN 3.4 GM/DL (3.2-5.2); ALT/SGPT 28 U/L (12-78); BILIRUBIN,TOTAL 0.4 MG/DL (0.2-1.0); BLOOD UREA NITROGEN 22 MG/DL (7-18); CALCIUM LEVEL 8.4 MG/DL (8.5-10.1); CARBON DIOXIDE LEVEL 25 MEQ/L (21-32); CHLORIDE LEVEL 110 MEQ/L (98-107); CHOLESTEROL LEVEL 197 MG/DL (<200); CHOLESTEROL RISK RATIO 5.969 (<5); CREATININE FOR GFR 0.73 MG/DL (0.55-1.30); FREE T4 0.91 NG/DL (0.76-1.46); GLOMERULAR FILTRATION RATE > 60.0 (>51); GLUCOSE, FASTING 71 MG/DL (70-100); HDL CHOLESTEROL 33 MG/DL (>40); LDL CHOLESTEROL 113 MG/DL (<100); NON-HDL-C 164 MG/DL; POTASSIUM SERUM 4.9 MEQ/L (3.5-5.1); SODIUM LEVEL 142 MEQ/L (136-145); TOTAL PROTEIN 7.5 GM/DL (6.4-8.2); TRIGLYCERIDES LEVEL 253 MG/DL (<150)
[2019-09-27 15:05] LABS: PTH INTACT 33.9 PG/ML (18.5-88.0); TOTAL 25(OH) VITAMIN D 49.1 NG/ML (30.0-100.0)
== END ==
LOC: M SFHCPLAZ 12:32
PROVIDERS: ATTEND Family Medicine
DX: F41.1 Generalized anxiety disorder (principal); E66.3 Overweight; D50.9 Iron deficiency anemia, unspecified; E55.9 Vitamin D deficiency, unspecified; E78.2 Mixed hyperlipidemia
CPT/HCPCS: 80053; 80061; 82306; 83970; 84439; 84443; G0463

== ENCOUNTER → 2019-09-28 | Outpatient (REF) | payer MEDICARE, MEDICAID | LOC: M SFHCPLAZ 09:18 | PROVIDERS: ATTEND Family Medicine | DX: Z53.9 Procedure and treatment not carried out, unspecified reason (principal) ==

== ENCOUNTER → 2020-04-29 | Outpatient (REF) | payer MEDICARE, MEDICAID ==
[2020-04-29 18:12] LABS: BASO % 0.6 % (0.0-1.0); EOS # 0.3 10^3/uL (0.0-0.5); EOS % 4.1 % (0.0-3.0); HEMATOCRIT 45.3 % (36.0-47.0); HEMOGLOBIN 13.9 g/dl (12.0-15.5); LYMPH # 2.5 10^3/uL (1.5-5.0); LYMPH % 35.6 % (24.0-44.0); MEAN CORPUSCULAR HEMOGLOBIN 26.5 pg (27.0-33.0); MEAN CORPUSCULAR HGB CONC 30.7 g/dl (32.0-36.5); MEAN CORPUSCULAR VOLUME 86.3 fl (80.0-96.0); MONO # 0.4 10^3/uL (0.0-0.8); NEUTROPHILS # 3.7 10^3/uL (1.5-8.5); NEUTROPHILS % 53.4 % (36.0-66.0); PLATELET COUNT, AUTOMATED 295 10^3/uL (150-450); RED BLOOD COUNT 5.25 10^6/uL (4.00-5.40)
[2020-04-29 23:10] LABS: HEMOGLOBIN A1c 5.1 %
== END ==
LOC: M SFHCPLAZ 16:57 → M PLALAB 16:57
PROVIDERS: ATTEND Family Medicine
DX: D50.9 Iron deficiency anemia, unspecified (principal); F41.1 Generalized anxiety disorder; E66.3 Overweight; Z79.899 Other long term (current) drug therapy

== ENCOUNTER → 2020-06-06 | Outpatient (CLI) | payer MEDICARE, MEDICAID ==
--- NOTE | 2020-06-06 12:39 | REPMRS ---
Patient History The patient states she had a clinical breast exam in 2019. No known family history of cancer. No Hormone Replacement Therapy Digital Woman Screen Mammo: June 06, 2020 - Exam #: [id number] Bilateral CC and MLO view(s) were taken. Technologist: Radha Drummond, Technologist Prior study comparison: June 05, 2019, bilateral digital woman screen mammo performed at [facility]. May 02, 2018, bilateral digital woman screen mammo performed at [facility]. FINDINGS: There are scattered fibroglandular densities. There has been no change in the appearance of the mammogram from the prior studies. There is a mild amount of scattered fibroglandular density which is fairly symmetric. There is no interval development of dominant mass, architectural distortion, or grouped microcalcification suggestive of malignancy. Assessment: BI-RADS/ACR category 1 mammogram. Negative Mammogram. Recommendation Routine screening mammogram of both breasts in 1 year (for women over age 40). This patient's [facility] Lifetime Breast Cancer Risk is estimated at 8.7 %. This mammogram was interpreted with the aid of an FDA-approved computer-aided dectection system. Electronically Signed By: Justin Welch MD 06/06/20 0849
== END ==
LOC: M WHC 11:38
PROVIDERS: ATTEND Family Medicine
DX: Z12.31 Encounter for screening mammogram for malignant neoplasm of breast (principal)

== ENCOUNTER → 2020-07-27 | Outpatient (REF) | payer MEDICARE, MEDICAID | LOC: M LAB REF 16:30 | PROVIDERS: ATTEND Physician Assistant | DX: Z11.59 Encounter for screening for other viral diseases (principal) ==

== ENCOUNTER → 2020-09-24 | Outpatient (CLI) | payer MEDICARE, MEDICAID ==
[2020-09-24 09:35] LABS: BASO # 0.1 10^3/uL (0.0-0.2); BASO % 0.9 % (0.0-1.0); EOS # 0.3 10^3/uL (0.0-0.5); EOS % 4.3 % (0.0-3.0); HEMATOCRIT 44.8 % (36.0-47.0); HEMOGLOBIN 14.2 g/dl (12.0-15.5); LYMPH # 1.8 10^3/uL (1.5-5.0); MEAN CORPUSCULAR HEMOGLOBIN 27.4 pg (27.0-33.0); MEAN CORPUSCULAR HGB CONC 31.7 g/dl (32.0-36.5); MEAN CORPUSCULAR VOLUME 86.3 fl (80.0-96.0); MONO # 0.4 10^3/uL (0.0-0.8); MONO % 6.4 % (2.0-8.0); NEUTROPHILS # 3.9 10^3/uL (1.5-8.5); NEUTROPHILS % 60.2 % (36.0-66.0); PLATELET COUNT, AUTOMATED 300 10^3/uL (150-450); RED BLOOD COUNT 5.19 10^6/uL (4.00-5.40); WHITE BLOOD COUNT 6.4 10^3/uL (4.0-10.0)
[2020-09-24 10:12] LABS: ALBUMIN 3.8 GM/DL (3.2-5.2); BILIRUBIN,TOTAL 0.5 MG/DL (0.2-1.0); CALCIUM LEVEL 9.3 MG/DL (8.5-10.1); CREATININE FOR GFR 1.04 MG/DL (0.55-1.30); FREE T4 1.03 NG/DL (0.76-1.46); GLOMERULAR FILTRATION RATE 58.4 (>51); PERCENT SATURATION 16.5 % (13.2-45.0); POTASSIUM SERUM 4.3 MEQ/L (3.5-5.1); THYROID STIMULATING HORMONE 3.61 uIU/ML (0.358-3.740); TOTAL PROTEIN 7.7 GM/DL (6.4-8.2)
[2020-09-24 10:52] LABS: TOTAL 25(OH) VITAMIN D 47.3 NG/ML (30.0-100.0)
[2020-09-24 10:53] LABS: PTH INTACT 36.6 PG/ML (18.5-88.0)
== END ==
LOC: M LAB 08:00
PROVIDERS: ATTEND Family Medicine
DX: E55.9 Vitamin D deficiency, unspecified (principal); I10 Essential (primary) hypertension; E78.2 Mixed hyperlipidemia; D50.9 Iron deficiency anemia, unspecified; Z79.899 Other long term (current) drug therapy

== ENCOUNTER → 2021-03-06 | Outpatient (CLI) | payer MEDICARE, MEDICAID ==
[2021-03-06 11:17] LABS: BASO # 0.1 10^3/uL (0.0-0.2); BASO % 0.7 % (0.0-1.0); EOS # 0.3 10^3/uL (0.0-0.5); EOS % 3.7 % (0.0-3.0); HEMATOCRIT 44.3 % (36.0-47.0); HEMOGLOBIN 13.9 g/dl (12.0-15.5); LYMPH # 1.8 10^3/uL (1.5-5.0); LYMPH % 21.6 % (24.0-44.0); MEAN CORPUSCULAR HEMOGLOBIN 27.3 pg (27.0-33.0); MEAN CORPUSCULAR HGB CONC 31.4 g/dl (32.0-36.5); MONO # 0.6 10^3/uL (0.0-0.8); MONO % 7.1 % (2.0-8.0); NEUTROPHILS # 5.6 10^3/uL (1.5-8.5); NEUTROPHILS % 66.4 % (36.0-66.0); PLATELET COUNT, AUTOMATED 271 10^3/uL (150-450); RED BLOOD COUNT 5.09 10^6/uL (4.00-5.40); WHITE BLOOD COUNT 8.5 10^3/uL (4.0-10.0)
[2021-03-06 11:53] LABS: ALBUMIN 3.6 GM/DL (3.2-5.2); ALT/SGPT 30 U/L (12-78); BILIRUBIN,TOTAL 0.3 MG/DL (0.2-1.0); BLOOD UREA NITROGEN 22 MG/DL (7-18); CALCIUM LEVEL 8.5 MG/DL (8.5-10.1); CARBON DIOXIDE LEVEL 26 MEQ/L (21-32); CHLORIDE LEVEL 111 MEQ/L (98-107); CHOLESTEROL LEVEL 180 MG/DL (<200); CREATININE FOR GFR 0.98 MG/DL (0.55-1.30); FERRITIN 112 NG/ML (8-252); FREE T4 0.88 NG/DL (0.76-1.46); GLOMERULAR FILTRATION RATE > 60.0 (>51); GLUCOSE, FASTING 84 MG/DL (70-100); HDL CHOLESTEROL 40 MG/DL (>40); IRON (FE) 49 UG/DL (50-170); LDL CHOLESTEROL 125 MG/DL (<100); NON-HDL-C 140 MG/DL; PERCENT SATURATION 15.6 % (13.2-45.0); POTASSIUM SERUM 4.5 MEQ/L (3.5-5.1); SODIUM LEVEL 142 MEQ/L (136-145); TOTAL 25(OH) VITAMIN D 56.5 NG/ML (30.0-100.0); TOTAL IRON BINDING CAPACITY 314 UG/DL (250-450); TOTAL PROTEIN 7.5 GM/DL (6.4-8.2); TRIGLYCERIDES LEVEL 74 MG/DL (<150)
== END ==
LOC: M WUC 09:59
PROVIDERS: ATTEND Nurse Practitioner Family
DX: E78.2 Mixed hyperlipidemia (principal); E55.9 Vitamin D deficiency, unspecified; I10 Essential (primary) hypertension; Z79.899 Other long term (current) drug therapy

== ENCOUNTER → 2021-06-11 | Outpatient (CLI) | payer MEDICARE, MEDICAID ==
[2021-06-11 12:25] LABS: BASO # 0.1 10^3/uL (0.0-0.2); BASO % 0.6 % (0.0-1.0); EOS # 0.4 10^3/uL (0.0-0.5); EOS % 4.7 % (0.0-3.0); HEMATOCRIT 43.9 % (36.0-47.0); HEMOGLOBIN 13.6 g/dl (12.0-15.5); LYMPH # 1.6 10^3/uL (1.5-5.0); LYMPH % 20.4 % (24.0-44.0); MEAN CORPUSCULAR HEMOGLOBIN 26.8 pg (27.0-33.0); MEAN CORPUSCULAR VOLUME 86.4 fl (80.0-96.0); MONO # 0.5 10^3/uL (0.0-0.8); MONO % 6.4 % (2.0-8.0); NEUTROPHILS # 5.4 10^3/uL (1.5-8.5); NEUTROPHILS % 67.5 % (36.0-66.0); PLATELET COUNT, AUTOMATED 294 10^3/uL (150-450); RED BLOOD COUNT 5.08 10^6/uL (4.00-5.40)
[2021-06-11 13:00] LABS: C REACTIVE PROTEIN QUANTITATIV 0.97 MG/DL (0.00-0.30); CHOLESTEROL LEVEL 178 MG/DL (<200); CHOLESTEROL RISK RATIO 4.944 (<5); FERRITIN 112 NG/ML (8-252); FREE T4 0.86 NG/DL (0.76-1.46); HDL CHOLESTEROL 36 MG/DL (>40); LDL CHOLESTEROL 118 MG/DL (<100); NON-HDL-C 142 MG/DL; TRIGLYCERIDES LEVEL 119 MG/DL (<150)
[2021-06-11 13:16] LABS: HEMOGLOBIN A1c 5.3 %
[2021-06-11 14:09] LABS: THYROID PEROXIDASE ANTIBODY < 28.0 U/ML (<60.0)
== END ==
LOC: M WUC 10:05
PROVIDERS: ATTEND Family Medicine
DX: D50.9 Iron deficiency anemia, unspecified (principal); E78.2 Mixed hyperlipidemia; Z79.899 Other long term (current) drug therapy

== ENCOUNTER → 2021-08-06 | Outpatient (CLI) | payer MEDICARE, MEDICAID | LOC: M WHC 14:20 | PROVIDERS: ATTEND Family Medicine | DX: Z12.31 Encounter for screening mammogram for malignant neoplasm of breast (principal) ==

== ENCOUNTER → 2021-11-18 | Outpatient (CLI) | payer MEDICARE, MEDICAID | LOC: M WHC 09:06 | PROVIDERS: ATTEND Family Medicine | DX: Z53.9 Procedure and treatment not carried out, unspecified reason (principal) ==

== ENCOUNTER → 2021-12-15 | Outpatient (CLI) | payer MEDICARE, MEDICAID | LOC: M WHC 13:51 | PROVIDERS: ATTEND Family Medicine | DX: M85.89 Other specified disorders of bone density and structure, multiple sites (principal) ==

== ENCOUNTER → 2022-01-26 | Outpatient (REF) | LOC: M LAB 12:28 ==